=== PATIENT | male | born 1975 | race Caucasian/White ===

== ENCOUNTER 2024-10-27 17:22 | Emergency (ER) | payer BC, SELFPAY ==
[2024-10-27 18:19] VITALS: BP 107/67; PULSE 104; RESP 17; TEMP 36.7; O2SAT 95; BMI 50.1
--- NOTE | 2024-10-27 20:22 | ED_ITS ---
<Statement entered by Rosina Michaud DO - 10/27/24 23:48> I was consulted by the VEDA, and we discussed the complexity of the problems being addressed. I approved the treatment and management plan for this patient's care in the emergency department, thus performing a substantive portion of the medical decision making. I performed bedside DVT ultrasound given borderline elevated D-dimer, which was negative for DVT. He did have cobblestoning concerning for cellulitis, so will elect to treat outpatient with Bactrim and Keflex. He was given very strict return precautions and instructions for close follow-up with PCP. He was discharged after all questions were answered. Limited DVT ultrasound Indication: Limited compression ultrasonography of the left lower extremity was performed to evaluate for non-compressibility of the deep veins in the patient. The ultrasound was performed with the following indications, as noted in the H&P: Left leg pain and swelling Identified structures: Left [common femoral vein, femoral vein, popliteal vein were examined.] Findings: Lower Extremity: Left CFV: Good compressibility Left FV: Good compressibility Left Popliteal vein: Good compressibility Impression: Negative left lower extremity DVT ultrasound Images were saved to permanent archive The study was technically adequate CPT: [id number] (complete bilateral study) This study was performed by me, and I personally interpreted all images/videos. Based on my clinical judgement, these images were adequate and did not necessitate further imaging. Rosina Michaud DO Discharge Plan Disposition Chief Complaint: Wound/Laceration Referrals Follow up/Referrals: Provider,Ambrocio Test [Primary Care Provider] - See instructions Instructions Patient Instructions: DI for Laceration Repair Print Language Print Language: Frisian Discharge ED Provider: Rosina Michaud General Adult HPI General Chief complaint: Wound/Laceration Stated complaint: Left leg infection Time Seen by Provider: 10/27/24 19:24 Mode of Arrival: Ambulatory Description of Symptoms (Recalled from ER Triage Doc. by RN): pt to the ED with a documented infection in his left calf. pt was seen by his PCP and reported she placed him on the wrong antibiotic and it has since worsened. pt denies any fevers or chills History of Present Illness HPI narrative: 49-year-old male presents to the emergency department with left lower extremity pain and swelling for the last 3 weeks. Patient recently finished antibiotic course of doxycycline which was a 10-day course according to the patient, this prescribed by PCP, he endorses worsening redness and swelling and still pain that is present. Patient denies any fever chills chest pain shortness of breath abdominal pain nausea vomiting constipation diarrhea, or urinary type symptomatology. Patient is current everyday smoker, denies any alcohol or other drug use. Patient is of the past medical history consistent with prediabetes, hyperlipidemia, coronary artery disease status post 2 stent placement, patient on dual antiplatelet therapy of Plavix and aspirin, hypertension. Initial triage vitals notable for tachycardia otherwise unremarkable. Of note, patient states approximately 3 weeks ago he had a pimple , on the posterior aspect of his gastrocnemius which he picked , thus resulting in infection. Also of note, patient states that usually sulfa antibiotics worked for him last time he had this. Onset (ago): week(s) Related Data Allergies Allergy/AdvReac Type Severity Reaction Status Date / Time No Known Allergies Allergy Verified 10/27/24 21:36 [facility] Disclaimer: The information contained in this section may have been updated after the patient was seen, as this information can be updated by other users. Social History Smoking Status: Current every day smoker alcohol intake: never current occupational status: other Travel in the last 8 weeks: None ROS Obtained: Yes All systems reviewed & no additional complaints except as documented Physical Exam General General appearance: alert and in no apparent distress Head Head exam: atraumatic and normocephalic Eye Eye exam: Present PERRL and EOMI ENT ENT exam: Present mucous membranes moist Neck Neck exam: Present normal inspection Chest Chest inspection: Present normal inspection and symmetric chest wall rise Respiratory Respiratory exam: Present normal lung sounds bilaterally; Absent respiratory distress Cardiovascular Cardiovascular exam: Present regular rate and normal rhythm Abdominal Exam Abdominal exam: Present soft; Absent tenderness Extremities Exam Extremities exam: Present normal inspection Neurological Exam Neurological exam: Present alert and oriented X3 Psychiatric Psychiatric exam: Present normal affect Skin Skin exam: Present warm, dry, erythema and other (Patient has some chronic venous stasis dermatitis/atrophic skin changes and mild 1+ pitting edema to the left lower extremity with some minimal erythema and some mild hot to touch sensation and pain to palpation of that area along the pretibial region.) Medical Decision Making Medical Records Medical records reviewed: Yes I reviewed the patient's medical records. Screening: Per USPSTF and CDC recommendations, given the prevalence of disease in our region, it is our hospital?s policy to screen for HIV and viral Hepatitis for all patients aged 18 and over and those with ongoing risk factors. Geovanny Inquiry Pt receiving controlled substance: No Geovanny was queried for this patient: No Vital Signs: 10/27/24 18:19 Temperature 98.1 F Temperature Source Oral Pulse Rate [Left Radial] 104 H Respiratory Rate 17 Blood Pressure [Right Arm] 107/67 L Blood Pressure Mean [Right Arm] 80 Blood Pressure Source [Right Arm] Automatic Cuff Blood Pressure Position [Right Arm] Sitting 02 Sat by Pulse Oximetry 95 Oxygen Delivery Method Room Air Lab Data Lab Results 10/27/24 21:20: WBC 8.2, RBC 5.64, Hgb 16.1, Hct 48.8, MCV 86.5, MCH 28.5, MCHC 33.0, RDW 14.2, Plt Count 199, MPV 9.5, Neut % (Auto) 66.7, Lymph % (Auto) 19.8, [place] % (Auto) 9.2, Eos % (Auto) 3.5, Baso % (Auto) 0.2, Neut # (Auto) 5.5, Lymph # (Auto) 1.6, [place] # (Auto) 0.8, Eos # (Auto) 0.3, Baso # (Auto) 0.0, D-Dimer 0.55 H, Sodium 136, Potassium 3.9, Chloride 99, Carbon Dioxide 30, Anion Gap 10.9, BUN 22 H, Creatinine 0.90, Estimated Creat Clear 111, Estimated GFR 89, Est GFR ( Amer) 108, Glucose 94, Calcium 9.1, Total Bilirubin 0.6, AST 31, ALT 28, Alkaline Phosphatase 68, Troponin I < 0.01, NT-Pro-B Natriuret Pep < 20.0, Total Protein 7.2, Albumin 4.1, Globulin 3.1, Albumin/Globulin Ratio 1.3 10/27/24 21:42: Lactate 0.9 10/27/24 21:20 10/27/24 21:20 Orders (Tests/Meds): ORDERS Category Date Time Status POCUS Point of Care (ER Only) Stat Exams 10/27/24 20:20 Ordered Complete Blood Count Auto Diff Stat Lab 10/27/24 21:20 Completed Comprehensive Metabolic Panel Stat Lab 10/27/24 21:20 Completed D-Dimer Stat Lab 10/27/24 21:20 Completed Lactic Acid Stat Lab 10/27/24 21:42 Completed NT Pro Brain Natriuretic Pep. Stat Lab 10/27/24 21:20 Completed Troponin I Q3H Lab 10/27/24 23:15 Ordered Troponin I Q3H Lab 10/28/24 02:15 Ordered Troponin I Stat Lab 10/27/24 21:20 Completed Blood Culture Stat Micro 10/27/24 12:43 Received CA venous doppler LE RT Stat Y 10/27/24 20:15 Stop Req Medical Decision Narrative: 49-year-old male presents to the emergency department with pain swelling and redness of the left lower extremity, differential diagnose include but not limited to cellulitis, DVT, venous stasis dermatitis, chronic venous insufficiency, lymphedema, acute/undiagnosed CHF exacerbation, dependent edema. Obtain basic laboratory studies, lactate level, D-dimer proBNP troponin, blood cultures, will obtain POCUS ultrasound bedside. CBC unremarkable no leukocytosis. D-dimer is minimally elevated at 0.55 CMP also notable for elevated BUN at 22, troponin and proBNP within normal limits. Otherwise unremarkable CMP. I discussed patient case with attending physician at shift change, she will be assuming admitted the patient's care/workup, disposition is pending bedside POCUS ultrasound to rule out DVT and possible addition of Keflex and Bactrim for cellulitis. Critical Care Critical Care Time Critical Care Time: No
[2024-10-27 21:44] LABS: Basophils % 0.2 % (0.1-2.0); Eosinophils # 0.3 K/mm3 (0.0-0.4); Eosinophils % 3.5 % (0.1-12.0); Hematocrit 48.8 % (42.0-52.0); Hemoglobin 16.1 g/dL (14.1-18.0); Lymphocytes # 1.6 K/mm3 (0.7-4.5); Lymphocytes % 19.8 % (10-50); Mean Corpuscular Hemoglobin 28.5 pg (27.0-31.2); Mean Corpuscular Volume 86.5 fl (80-94); Mean Platelet Volume 9.5 fl (7.4-10.4); Monocytes # 0.8 K/mm3 (0.1-1.0); Monocytes % 9.2 % (1.7-9.3); Neutrophils # 5.5 K/mm3 (1.8-7.8); Neutrophils % 66.7 % (37.0-80.0); Nucleated Red Blood Cells # 0 10^3/uL; Nucleated Red Blood Cells % 0 %; Platelet Count 199 K/mm3 (142-424); Red Blood Count 5.64 M/mm3 (4.60-6.20); Red Cell Distribution Width 14.2 % (11.5-17.5); Red Cell Distribution Width-SD 44.8 fL; White Blood Count 8.2 K/mm3 (4.8-10.8)
[2024-10-27 21:53] LABS: Alanine Aminotransferase 28 U/L (12-78); Albumin Level 4.1 g/dl (3.5-5.0); Albumin/Globulin Ratio 1.3 (1.1-1.8); Alkaline Phosphatase 68 U/L (38-126); Anion Gap 10.9 mEq/L (5-15); Aspartate Amino Transferase 31 U/L (17-59); Bilirubin,Total 0.6 mg/dl (0.2-1.3); Blood Urea Nitrogen 22 mg/dl (9-20); Calcium 9.1 mg/dl (8.4-10.2); Carbon Dioxide 30 mmol/L (22.0-30.0); Chloride 99 mmol/L (98-107); Creatinine Clearance Estimated 111 mL/min (50-200); Estimated Glomerular Filt Rate 89 ml/min (>60); GFR (African American) 108 ML/MIN (>60); Globulin 3.1 g/dL (1.3-3.2); Glucose 94 mg/dl (74-100); Potassium 3.9 mmoL/L (3.5-5.1); Sodium 136 mmol/L (136-145); Total Protein,Serum 7.2 g/dl (6.3-8.2)
[2024-10-27 21:59] LABS: D-Dimer 0.55 ug/mL (0.0-0.5)
[2024-10-27 22:00] LABS: Lactic Acid 0.9 mmol/L (0.7-2.1)
[2024-10-27 22:07] LABS: NT Pro Brain Natriuretic Pep. < 20.0 pg/mL (0-125); Troponin I < 0.01 ng/ml (0.00-0.034)
[2024-10-27 23:17] VITALS: BP 110/87; PULSE 87; RESP 20; TEMP 36.6; O2SAT 98
[2024-10-27] MEDS: SULFA/TRIMETHOPRIM 1 TABLET 1 EACH PO (23:18)
[2024-10-27] MEDS: cephALEXin 500MG CAPSULE 500 MG PO (23:18)
== END 2024-10-27 23:22 | disposition home or self-care (01) ==
PROVIDERS: Physician Assistant; Emergency Provider Emergency Medicine
DX: L03.116 Cellulitis of left lower limb (principal)
CPT/HCPCS: 99284; 80053; 83605; 83880; 84484; 85025; 85378; 87040

== ENCOUNTER 2024-11-28 09:27 | Emergency (ER) | payer BC, SELFPAY ==
[2024-11-28 09:34] VITALS: BP 116/79; PULSE 87; O2SAT 95
[2024-11-28 09:42] VITALS: BP 116/79; PULSE 92; RESP 20; TEMP 36.8; O2SAT 100; BMI 49.4
--- NOTE | 2024-11-28 09:44 | ED_ITS ---
Discharge Plan Disposition Patient Disposition: Home, Self-Care Prescriptions Prescriptions: New prednisone 20 mg tablet 40 mg PO DAILY 5 Days Qty: 10 0RF No Action sulfamethoxazole-trimethoprim [Bactrim DS] 800-160 mg tablet 1 tab PO BID 14 Days Qty: 28 0RF cephalexin 500 mg capsule 500 mg PO Q8H 10 Days Qty: 30 0RF Referrals Follow up/Referrals: Isela Zamora [Primary Care Provider] - See instructions Activity Restrictions/Add. Instructions Additional Instructions/Restrictions: Contact vascular surgery at location of your choice for further evaluation. This is likely vascular insufficiency versus vasculitis, but I feel vasculitis is less likely. Call your family doctor to establish care for this visit to the emergency department and schedule follow-up within 48 hours to ensure improvement. If you have any worsening of your condition or any other concerning signs or symptoms, return to the emergency department or your primary care doctor for further evaluation. Clinical Impressions Clinical Impression: Lower extremity pain, bilateral Print Language Print Language: Divehi Discharge ED Provider: Kemar Hansen General Adult HPI General Chief complaint: Extremity Injury, Lower Stated complaint: infection in left leg abt. 2mnth Time Seen by Provider: 11/28/24 09:32 History of Present Illness HPI narrative: Please note that above description of symptoms, in this electronic medical record under categorization of recalled from ER triage doctor by RN are reflective of an initial nursing assessment, however, is not reflective of my full history and physical exam that was personally taken and clarified. Consequentially, this preceding description of symptoms, which may include the patient's categorized chief complaint in the EMR, do not reflect my personal clinical impression, and the ultimate description of history of present illness and patient stated complaints should be deferred to this section of the note. Unless stated otherwise or congruent with this section of the note, additional signs, symptoms, or incongruence should be interpreted as inaccurate with my clinical impression. Related Data Previous Rx's ?Medication ?Instructions ?Recorded cephalexin 500 mg capsule 500 mg PO Q8H 10 days #30 caps 10/27/24 sulfamethoxazole 800 1 tab PO BID 14 days #28 tabs 10/27/24 mg-trimethoprim 160 mg tablet (Bactrim DS) prednisone 20 mg tablet 40 mg (2 x 20 mg) PO DAILY 5 days 11/28/24 #10 tabs Allergies Allergy/AdvReac Type Severity Reaction Status Date / Time amoxicillin Allergy Rash Verified 11/28/24 09:49 Penicillins Allergy Hives Verified 11/28/24 09:49 [facility] Disclaimer: The information contained in this section may have been updated after the patient was seen, as this information can be updated by other users. Social History (Updated 10/27/24 @ 22:22 by ELIZABETH Hurt) Smoking Status: Current every day smoker alcohol intake: never current occupational status: other Travel in the last 8 weeks?: None Have you lived/traveled outside [place] in past 30 days?: No Contact w/someone who lives/traveled outside [place] past 30 days?: No Exposure to someone with infectious disease in past 14 days?: No Do you have a fever (greater than 100.4 F or 38 C)?: No Have you tested positive for COVID-19?: No Exposed to someone with COVID-19 in past 14 days?: No Do you have a sore throat?: No Do you have a cough?: No Do you have any weakness?: No Do you have any diarrhea?: No Are you experiencing any unusual bleeding?: No Do you have any muscle aches/pain?: No Do you have any abdominal pain?: No Are you experiencing loss of taste or smell?: No ROS Obtained: Yes All systems reviewed & no additional complaints except as documented Physical Exam General General appearance: alert Head Head exam: atraumatic and normocephalic Eye Eye exam: Present normal appearance, PERRL and EOMI ENT ENT exam: Present other (Purpleish discoloration of the nose consistent with probable vasculitis) Neck Neck exam: Present normal inspection, full ROM and trachea midline Respiratory Respiratory exam: Absent respiratory distress, wheezes, stridor, accessory muscle use or prolonged expiratory phase Cardiovascular Cardiovascular exam: Present other (Pulses equal symmetric in upper and lower extremities) Abdominal Exam Abdominal exam: Present soft; Absent distention, tenderness or pulsatile mass Extremities Exam Extremities exam: Present edema and other (1+ pitting edema bilateral lower extremity with purplish discoloration of bilateral lower extremities consistent with cellulitis versus chronic overlying skin changes and venous insufficiency) Neurological Exam Neurological exam: Present alert, oriented X3 and CN II-XII intact; Absent motor sensory deficit Skin Skin exam: Present warm and dry; Absent diaphoresis or erythema Medical Decision Making Medical Records Medical records reviewed: Yes I reviewed the patient's medical records. Screening: Per USPSTF and CDC recommendations, given the prevalence of disease in our region, it is our hospital?s policy to screen for HIV and viral Hepatitis for all patients aged 18 and over and those with ongoing risk factors. Geovanny Inquiry Pt receiving controlled substance: No Geovanny was queried for this patient: No Vital Signs: 11/28/24 09:34 11/28/24 09:42 11/28/24 10:00 Temperature 98.2 F Temperature Source Oral Pulse Rate 87 75 Pulse Rate [Left Radial] 92 H Respiratory Rate 20 Blood Pressure 116/79 106/68 L Blood Pressure [Right Arm] 116/79 Blood Pressure Mean [Right Arm] 91 02 Sat by Pulse Oximetry 95 100 92 L Oxygen Delivery Method Room Air Lab Data Lab Results 11/28/24 09:47: WBC 8.5, RBC 5.96, Hgb 17.2, Hct 52.2 H, MCV 87.6, MCH 28.9, MCHC 33.0, RDW 14.1, Plt Count 185, MPV 9.5, Neut % (Auto) 73.0, Lymph % (Auto) 15.1, [place] % (Auto) 7.8, Eos % (Auto) 3.1, Baso % (Auto) 0.4, Neut # (Auto) 6.2, Lymph # (Auto) 1.3, [place] # (Auto) 0.7, Eos # (Auto) 0.3, Baso # (Auto) 0.0, ESR 4 11/28/24 10:30: Sodium 136, Potassium 4.1, Chloride 99, Carbon Dioxide 33 H, Anion Gap 8.1, BUN 17, Creatinine 0.90, Estimated Creat Clear 111, Estimated GFR 89, Est GFR ( Amer) 108, Glucose 112 H, Calcium 8.9, Total Bilirubin 0.5, AST 27, ALT 30, Alkaline Phosphatase 69, C-Reactive Protein 6.8 H, Total Protein 7.1, Albumin 4.4, Globulin 2.7, Albumin/Globulin Ratio 1.6 11/28/24 10:34: Urine Color Yellow, Urine Appearance Clear, Urine pH 6.0, Ur Specific [place] 1.020, Urine Protein Negative, Urine Glucose (UA) Negative, Urine Ketones Negative, Urine Blood Negative, Urine Nitrate Negative, Urine Bilirubin Negative, Urine Urobilinogen 0.2, Ur Leukocyte Esterase Negative, Urine RBC None, Urine WBC None, Ur Squamous Epith Cells None, Urine Bacteria None 11/28/24 09:47 11/28/24 10:30 Orders (Tests/Meds): ED MEDICATIONS Discontinued Medications Generic Name Dose Route Start Last Admin Trade Name Lainey PRN Reason Stop Dose Admin Dexamethasone 10 mg 11/28/24 09:48 11/28/24 09:51 Dexamethasone 4mg Tablet PO 11/28/24 09:49 10 mg ONCE ONE Administration ORDERS Category Date Time Status CBC w/Auto Diff [Complete Blood Count Auto Diff] Stat Lab 11/28/24 09:47 Completed CMP [Comprehensive Metabolic Panel] Stat Lab 11/28/24 10:30 Completed CRP [C-Reactive Protein] Stat Lab 11/28/24 10:30 Completed ESR [Erythrocyte Sedimentation Rate] Stat Lab 11/28/24 09:47 Completed UA [Urinalysis and Microscopic] Stat Lab 11/28/24 10:34 Completed Medical Decision Narrative: 49-year-old male presenting with bilateral lower extremity discoloration and pain. Been going on for months, has been seen and put on multiple rounds of antibiotics for concern for cellulitis. Has not gotten any better and it seems like it is getting worse. Worse after long days, painful, intermittently stabbing and throbbing, but made better in the morning. States that he wakes up with no pain it gets worse throughout the day. No fevers or chills, nausea or vomiting, systemic signs or symptoms. Compression socks do seem to help as well. He does smoke 1 to 2 packs/day. History was obtained via conversation with patient. On arrival, patient hemodynamically stable, alert, [oriented x4, ][appropriate, ]GCS [15], moving all extremities spontaneously, pupils equal and reactive to light. Full physical exam performed and significant for purplish discoloration of his nose, distal upper extremities and lower extremities primarily on the shins. 1+ pitting edema on bilateral lower extremities as well. Nontender on my exam, no calf tenderness. Differential includes vasculitis, venous insufficiency, PAD, less likely be cellulitis, DVT, among others. Patient placed on continuous cardiac monitoring and continuous pulse ox with initial blood pressure 116/79, heart rate 87, saturation 95% on room air. Patient was given Decadron for symptomatic management[ and correction of underlying abnormalities]. Workup independently interpreted and significant for nonactionable CBC or chemistry or inflammatory markers. No evidence of proteinuria or hematuria. Reevaluation, patient still resting at baseline. Given patient presentation, workup, history, this most likely represents vasculitis versus venous insufficiency. Recommended he follow-up with vascular surgery, but in the meantime will be trialed on steroid burst. Will report to vascular surgery to see if that helps. Because patient at baseline without signs or symptoms of clinical decompensation, deemed appropriate for discharge. Results were relayed to patient and correction of underlying abnormalities 15 appropriate, oriented x4, who voiced understanding and were agreeable to outpatient management and follow up. I discussed my clinical impression with patient[] and answered all questions. At this time, the evidence for any other entities in the differential is insufficient to warrant any further testing or ED observation. This was explained as well. Advisory was given that persistent or worsening symptoms require further evaluation. I confirmed the understanding of this discussion. [employer] Machine [employer]er disclaimer Much of this encounter note is an electronic proposal coordinator spoken language to printed text. Electronic proposal coordinator of the spoken language may permit errors. Although I have reviewed the note, some errors may still exist. Critical Care Critical Care Time Critical Care Time: No
[2024-11-28] MEDS: DEXAMETHASONE 4MG TABLET 10 MG PO (09:51)
[2024-11-28 09:53] LABS: Basophils % 0.4 % (0.1-2.0); Eosinophils # 0.3 Kmm3 (0.0-0.4); Eosinophils % 3.1 % (0.1-12.0); Hematocrit 52.2 % (42.0-52.0); Hemoglobin 17.2 g/dL (14.1-18.0); Immature Granulocytes # 0.05 10^3uL; Immature Granulocytes % 0.6 %; Lymphocytes # 1.3 K/mm3 (0.7-4.5); Lymphocytes % 15.1 % (10-50); Mean Corpuscular Hemoglobin 28.9 pg (27.0-31.2); Mean Corpuscular Volume 87.6 fl (80-94); Mean Platelet Volume 9.5 fl (7.4-10.4); Monocytes # 0.7 K/mm3 (0.1-1.0); Monocytes % 7.8 % (1.7-9.3); Neutrophils # 6.2 K/mm3 (1.8-7.8); Nucleated Red Blood Cells # 0 10^3/uL; Nucleated Red Blood Cells % 0 %; Platelet Count 185 K/mm3 (142-424); Red Blood Count 5.96 M/mm3 (4.60-6.20); Red Cell Distribution Width 14.1 % (11.5-17.5); Red Cell Distribution Width-SD 45.1 fL; White Blood Count 8.5 K/mm3 (4.8-10.8)
[2024-11-28 10:00] VITALS: BP 106/68; PULSE 75; O2SAT 92
[2024-11-28 10:37] LABS: Microscopic, Urine URINE MICROSCOPIC (MICROSCOPIC)
[2024-11-28 10:40] LABS: Appearance,Urine CLEAR (Clear); Bilirubin,Urine Negative (Negative); Blood, Urine Negative (Negative); Color,Urine YELLOW (Yellow); Glucose,Urine (UA) Negative (Negative); Ketones,Urine Negative (Negative); Leukocyte Esterase,Urine Negative (Negative); Nitrate,Urine Negative (Negative); Protein,Urine Negative (Negative); Urobilinogen,Urine 0.2 EU/dl (0.2)
[2024-11-28 10:46] LABS: Albumin Level 4.4 g/dl (3.5-5.0); Chloride 99 mmol/L (98-107); Sodium 136 mmol/L (136-145)
[2024-11-28 10:47] LABS: Potassium 4.1 mmoL/L (3.5-5.1)
[2024-11-28 10:49] LABS: Alanine Aminotransferase 30 U/L (12-78); Anion Gap 8.1 mEq/L (5-15); Aspartate Amino Transferase 27 U/L (17-59); Blood Urea Nitrogen 17 mg/dl (9-20); Carbon Dioxide 33 mmol/L (22.0-30.0); Creatinine Clearance Estimated 111 mL/min (50-200); Estimated Glomerular Filt Rate 89 ml/min (>60); GFR (African American) 108 ML/MIN (>60)
[2024-11-28 10:50] LABS: Albumin/Globulin Ratio 1.6 (1.1-1.8); Alkaline Phosphatase 69 U/L (38-126); Bilirubin,Total 0.5 mg/dl (0.2-1.3); Calcium 8.9 mg/dl (8.4-10.2); Globulin 2.7 g/dL (1.3-3.2); Glucose 112 mg/dl (74-100); Total Protein,Serum 7.1 g/dl (6.3-8.2)
[2024-11-28 10:55] LABS: C-Reactive Protein 6.8 mg/L (0-4)
[2024-11-28 11:35] LABS: Erythrocyte Sedimentation Rate 4 mm/hr (0-15)
[2024-11-28 12:02] VITALS: BP 106/68; PULSE 81; RESP 18; TEMP 37.1; O2SAT 98
== END 2024-11-28 12:04 | disposition home or self-care (01) ==
PROVIDERS: Emergency Provider Emergency Medicine; PCP Internal Medicine
DX: M79.604 Pain in right leg (principal); M79.605 Pain in left leg; F17.210 Nicotine dependence, cigarettes, uncomplicated
CPT/HCPCS: 36415; 80053; 81001; 85025; 85651; 86140; 99283; J8540